=== PATIENT | male | born 1945 | race African-American/Black ===

== ENCOUNTER 2017-01-16 14:24 | Emergency (ER) | payer OTHER ==
[~2017-01-16] VITALS: Ht 180.3 cm; Wt 65.8 kg
[2017-01-16 15:03] VITALS: BP 130/73
--- NOTE | 2017-01-16 15:39 | Emergency Room Report ---
History of Present Illness General Chief Complaint: Dyspnea/Respdistress Source: Patient Present Illness HPI Patient presents with complaints of shortness of breath Initially patient had reported that he was sent here for x-ray imaging However after further discussion patient reports increasingly having shortness of breath patient had recent hospitalization at [facility] and reports he was told that he had pneumonia Patient has a history of cirrhosis and hepatitis C denies any vomiting or diarrhea denies any chest pain however he does have exertional dyspnea Denies any recent travel denies any trauma Allergies: Coded Allergies: No Known Allergies (Unverified , 01/16/17) Patient History Past Medical History: see triage record Pertinent Family History: none Reviewed Nursing Documentation: PMH: Agreed, PSxH: Agreed Nursing Documentation-PMH Past Medical History: No History, Except For Hx Hypertension: Yes Review of Systems All Other Systems: negative except mentioned in HPI Physical Exam Vital Signs Date Time Temp Pulse Resp B/P Pulse Ox O2 Delivery O2 Flow Rate FiO2 01/16/17 14:52 97.3 67 18 130/73 91 Room Air Sp02 EP Interpretation: reviewed, abnormal - 91% which is a low oxygenation General Appearance: no apparent distress Head: normocephalic, atraumatic Eyes: bilateral eye EOMI, bilateral eye PERRL, bilateral eye scleral icterus ENT: normal pharynx, no angioedema Neck: supple, thyroid normal Respiratory: crackles - Diffusely and lower lobes Cardiovascular #1: normal peripheral pulses, regular rate, rhythm, no edema Gastrointestinal: non tender, soft Genitourinary: no CVA tenderness Musculoskeletal: normal inspection Neurologic: alert, oriented x3 Skin: jaundice Lymphatic: no adenopathy Medical Decision Making Diagnostic Impression: Primary Impression: Dyspnea Additional Impression: Emphysema lung ER Course Patient is a fairly complex patient with multiple differential to consideration including but not limited to cardiac cardiopulmonary and vascular emergencies Patient's x-ray shows some chronic pathology cannot rule out acute disease Blood work is at baseline levels patient felt better with breathing treatment At this time I did obtain medical records from previous hospitalization there are some overlying components this patient further stabilized at this time secondary to insurance purposes was requested for transfer for further inpatient care Labs Test 01/16/17 15:20 01/16/17 16:30 White Blood Count 7.9 K/UL (4.8-10.8) Red Blood Count 4.56 M/UL (4.70-6.10) Hemoglobin 14.2 G/DL (14.2-18.0) Hematocrit 44.8 % (42.0-52.0) Mean Corpuscular Volume 98 FL (80-99) Mean Corpuscular Hemoglobin 31.2 PG (27.0-31.0) Mean Corpuscular Hemoglobin Concent 31.7 G/DL (32.0-36.0) Red Cell Distribution Width 14.6 % (11.6-14.8) Platelet Count 191 K/UL (150-450) Mean Platelet Volume 5.3 FL (6.5-10.1) Neutrophils (%) (Auto) 77.2 % (45.0-75.0) Lymphocytes (%) (Auto) 16.8 % (20.0-45.0) Monocytes (%) (Auto) 4.9 % (1.0-10.0) Eosinophils (%) (Auto) 0.7 % (0.0-3.0) Basophils (%) (Auto) 0.5 % (0.0-2.0) Prothrombin Time 13.1 SEC (9.30-11.50) Prothromb Time International Ratio 1.3 (0.9-1.1) Activated Partial Thromboplast Time 26 SEC (23-33) Sodium Level 135 mEQ/L (135-145) Potassium Level 4.9 mEQ/L (3.4-4.9) Chloride Level 97 mEQ/L (98-107) Carbon Dioxide Level 22 mEQ/L (20-30) Anion Gap 16 (5-15) Blood Urea Nitrogen 22 mg/dL (7-23) Creatinine 1.8 mg/dL (0.7-1.2) Estimat Glomerular Filtration Rate mL/min (>60) Glucose Level 76 mg/dL (74-106) Calcium Level 8.1 mg/dL (8.6-10.2) Total Bilirubin 1.1 mg/dL (0.0-1.2) Direct Bilirubin 0.6 mg/dL (0.1-0.3) Aspartate Amino Transf (AST/SGOT) 59 U/L (5-40) Alanine Aminotransferase (ALT/SGPT) 26 U/L (3-41) Alkaline Phosphatase 156 U/L (40-129) Total Creatine Kinase 53 U/L (38-174) Creatine Kinase MB 3.7 ng/mL (< 6.7) Creatine Kinase MB Relative Index 6.9 Troponin I < 0.30 ng/mL (<=0.30) Pro-B-Type Natriuretic Peptide 5169 pg/mL (0-125) Total Protein 6.4 g/dL (6.6-8.7) Albumin 2.3 g/dL (3.5-5.2) Globulin 4.1 g/dL Albumin/Globulin Ratio 0.5 (1.0-2.7) Lipase 21 U/L (< 60) Urine Color Yellow Urine Appearance Clear Urine pH 7 (4.5-8.0) Urine Specific [place] 1.010 (1.005-1.035) Urine Protein 1+ (NEGATIVE) Urine Glucose (UA) Negative (NEGATIVE) Urine Ketones Negative (NEGATIVE) Urine Occult Blood Negative (NEGATIVE) Urine Nitrite Negative (NEGATIVE) Urine Bilirubin Negative (NEGATIVE) Urine Urobilinogen 4 MG/DL (0.0-1.0) Urine Leukocyte Esterase 1+ (NEGATIVE) Urine RBC 0-2 /HPF (0 - 0) Urine WBC 2-4 /HPF (0 - 0) Urine Squamous Epithelial Cells None /LPF (NONE/OCC) Urine Amorphous Sediment Few /LPF (NONE) Urine Bacteria Few /HPF (NONE) Rhythm Strip Diag. Results EP Interpretation: yes Rate: 67 Rhythm: NSR, no PVC's, no ectopy Chest X-Ray Diagnostic Results EP Interpretation: Yes Findings: no effusion, no pneumothorax, other - multiple scarring, atelectasis left middle lobe Number of Views: 1 Last Vital Signs Date Time Temp Pulse Resp B/P Pulse Ox O2 Delivery O2 Flow Rate FiO2 01/16/17 14:52 97.3 67 18 130/73 91 Room Air Status: improved Disposition: XFER [facility] Condition: Serious Referrals: NON PHYSICIAN (PCP) DAVID SUERO D.O. Jan 16, 2017 15:39
[2017-01-16] MEDS ORDERED: Albuterol ud Inhalation HHN ONE (15:45)
[2017-01-16 17:18] VITALS: BP 128/79
--- NOTE | 2017-01-16 17:31 | Diagnostic Imaging Report ---
Indication: SOB Technique: 2 views of the chest Comparison: none Findings: Extensive interstitial pulmonary opacities are seen bilaterally. More confluent triangular opacity is seen in the left midlung, with some stranding centrally. What appears to be extensive bronchiectasis and honeycombing is noted. There is some hyperinflation in the left lung. A more nodular appearing opacity measuring 1.5 cm is seen adjacent to the left heart border. Pleural spaces are clear Impression: Bilateral interstitial disease. Acuity indeterminate, but presence of bronchiectasis and honeycombing suggests this is likely chronic. Left midlung triangular opacity. Acuity likewise indeterminate although suspect this also represents area of chronic scarring 1.5 cm nodular opacity in the left mid to lower lung. Suspect for the above process, but neoplasm not excludable Borderline cardiomegaly Left lung hyperinflation
[2017-01-16 17:43] LABS: APPEARANCE,URINE CLEAR; KETONES,URINE NEGATIVE (NEGATIVE); LEUKOCYTE ESTERASE ,URINE 1+ (NEGATIVE); NITRITE,URINE NEGATIVE (NEGATIVE); PH,URINE 7 (4.5-8.0); PROTEIN,URINE 1+ (NEGATIVE); UROBILINOGEN,URINE 4 MG/DL (0.0-1.0)
[2017-01-16 18:03] LABS: BASOPHILS % (AUTO) 0.5 % (0.0-2.0); EOSINOPHILS % (AUTO) 0.7 % (0.0-3.0); LYMPHOCYTES % (AUTO) 16.8 % (20.0-45.0); MEAN CORPUSCULAR HEMOGLOBIN 31.2 PG (27.0-31.0); MEAN CORPUSCULAR HGB CONC 31.7 G/DL (32.0-36.0); MEAN CORPUSCULAR VOLUME 98 FL (80-99); MEAN PLATELET VOLUME 5.3 FL (6.5-10.1); MONOCYTES % (AUTO) 4.9 % (1.0-10.0); NEUTROPHILS % (AUTO) 77.2 % (45.0-75.0); PLATELET COUNT 191 K/UL (150-450); RED BLOOD COUNT 4.56 M/UL (4.70-6.10); RED CELL DISTRIBUTION WIDTH 14.6 % (11.6-14.8); WHITE BLOOD COUNT 7.9 K/UL (4.8-10.8)
[2017-01-16 18:06] LABS: INR 1.3 (0.9-1.1); PROTHROMBIN TIME 13.1 SEC (9.30-11.50); TROPONIN I < 0.30 ng/mL (<=0.30)
[2017-01-16 18:09] LABS: ALANINE AMINOTRANSFERASE 26 U/L (3-41); ALBUMIN/GLOBULIN RATIO 0.5 (1.0-2.7); ANION GAP 16 (5-15); ASPARTATE AMINO TRANSFERASE 59 U/L (5-40); CALCIUM 8.1 mg/dL (8.6-10.2); CARBON DIOXIDE 22 mEQ/L (20-30); CHLORIDE 97 mEQ/L (98-107); CREATININE 1.8 mg/dL (0.7-1.2); HEMOLYSIS 131; LIPASE 21 U/L (< 60); SODIUM 135 mEQ/L (135-145); TOTAL PROTEIN 6.4 g/dL (6.6-8.7)
[2017-01-16 18:12] LABS: AMORPHOUS SEDIMENT,UR FEW /LPF; BACTERIA,URINE FEW /HPF; RBC,URINE 0-2 /HPF (0 - 0)
[2017-01-16 18:24] LABS: BILIRUBIN,DIRECT 0.6 mg/dL (0.1-0.3)
[2017-01-16 18:25] LABS: CKMB 3.7 ng/mL (< 6.7); POTASSIUM 4.9 mEQ/L (3.4-4.9)
[2017-01-16 18:46] VITALS: BP 152/87
[2017-01-16 20:41] VITALS: BP 156/75
[2017-01-16 21:37] VITALS: BP 156/75
--- NOTE | 2017-01-18 23:14 | Cardiology Report ---
APPROVED REPORT EKG Measurement Heart [id number] Normal sinus rhythm Possible Left atrial enlargement Borderline ECG
== END 2017-01-16 21:37 | disposition short-term general hospital (02) ==
LOC: EMR 15:08
DX: J43.9 Emphysema, unspecified (principal); I10 Essential (primary) hypertension
CPT/HCPCS: 36415; 71010; 71020; 80053; 81003; 82248; 82550; 82553; 83690; 83880; 84484; 85025; 85610; 85730; 93005; 94640; 94664; 99285

== ENCOUNTER 2019-05-02 13:32 | Inpatient (IN) | payer MEDICARE, OTHER ==
[~2019-05-02] VITALS: Ht 180.3 cm; Wt 52.2 kg
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
[2019-05-02 13:41] VITALS: BP 232/122
[2019-05-02] MEDS ORDERED: cloNIDine 0.2mg Tab ORAL ONE (13:45)
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
[2019-05-02] MEDS ORDERED: Labetalol 5mg/ml 20ml vial IV ONE (14:00)
[2019-05-02 14:24] LABS: BASOPHILS % (AUTO) 0.7 % (0.0-2.0); EOSINOPHILS % (AUTO) 0.1 % (0.0-3.0); HEMOGLOBIN 15.4 G/DL (14.2-18.0); LYMPHOCYTES % (AUTO) 13.6 % (20.0-45.0); MEAN CORPUSCULAR VOLUME 100 FL (80-99); MONOCYTES % (AUTO) 9.2 % (1.0-10.0); NEUTROPHILS % (AUTO) 76.4 % (45.0-75.0); PLATELET COUNT 284 K/UL (150-450); RED BLOOD COUNT 4.71 M/UL (4.70-6.10); RED CELL DISTRIBUTION WIDTH 11.1 % (11.6-14.8); WHITE BLOOD COUNT 10.1 K/UL (4.8-10.8)
[2019-05-02] MEDS ORDERED: Loperamide 2mg cap ORAL ONE (14:30)
--- NOTE | 2019-05-02 14:43 | Diagnostic Imaging Report ---
Indication: Headache Technique: Contiguous 5 mm thick transaxial imaging of the head obtained in a Siemens Sensation [address] scanner. Soft tissue and bone windows generated. Automatic Exposure Control was utilized. Total Dose length Product (DLP): 1340.[address] Dose Index Volume (CTDIvol): 70.38 mGy Comparison: none Findings: There is an area of low attenuation measuring about 6 to 7 mm in the right thalamus. There is also an area of low attenuation in the medial left thalamus measuring about 4 mm. These are consistent with lacunar infarcts the acuity of which is not certain but probably old. Please correlate clinically. There is moderate prominence of the ventricles, basal cisterns, and cerebral sulci consistent with atrophy. Moderate, nonspecific, white matter hypoattenuation is noted throughout the brain consistent with chronic small vessel disease. There is no midline shift, edema, acute hemorrhage, mass effect, or abnormal extra-axial fluid collections. Bones are unremarkable. Impression: Age-indeterminate small lacunar infarcts involving the thalami bilaterally. Correlate clinically. These are probably old. Moderate atrophy of the brain. Evidence of chronic small vessel disease involving white matter tracts. The CT scanner at [facility] is accredited by the [employer] and the scans are performed using dose optimization techniques as appropriate to a performed exam including Automatic Exposure control.
[2019-05-02 14:45] LABS: ANION GAP 16 mmol/L (5-15); BLOOD UREA NITROGEN 73 mg/dL (7-18); CALCIUM 9.8 MG/DL (8.5-10.1); CARBON DIOXIDE 21 MMOL/L (21-32); CHLORIDE 100 MMOL/L (98-107); CREATININE 3.6 MG/DL (0.55-1.30); POTASSIUM 4.2 MMOL/L (3.5-5.1); SODIUM 137 MMOL/L (136-145)
[2019-05-02 14:54] LABS: INR 1.1 (0.9-1.1)
[2019-05-02 15:00] LABS: ALANINE AMINOTRANSFERASE 61 U/L (12-78); ALBUMIN/GLOBULIN RATIO 0.8 (1.0-2.7); ALKALINE PHOSPHATASE 200 U/L (46-116); ASPARTATE AMINO TRANSFERASE 74 U/L (15-37); BILIRUBIN,TOTAL 1.4 MG/DL (0.2-1.0); CKMB 8.6 NG/ML (0.0-3.6); CREATINE KINASE 291 U/L (26-308)
[2019-05-02 15:01] LABS: BILIRUBIN,DIRECT 0.6 MG/DL (0.0-0.3)
[2019-05-02 15:08] VITALS: BP 177/108
--- NOTE | 2019-05-02 15:09 | NUR ---
ED Nurse Note: notified Dr. Martinez regarding BP 177/108
--- NOTE | 2019-05-02 15:15 | NUR ---
ED Nurse Note: urinal provided for UA, patient stated he will try later
--- NOTE | 2019-05-02 15:19 | NUR ---
ED Nurse Note: sandwich /juice provided for patient as requested Dr. Martinez is ok with patient eating
--- NOTE | 2019-05-02 15:44 | Diagnostic Imaging Report ---
Indication: Cough Comparison: 01/16/2017 A single view chest radiograph was obtained. Findings: The lungs are clear. Heart size is normal. The aorta is mildly ectatic and calcified. Bones are osteopenic. Scarring in the left upper lobe noted. IMPRESSION: No acute disease. Note: The comparison film from 01/16/2017 shows evidence of bronchiectasis and interstitial disease likely pulmonary fibrosis. Given the marked difference in appearance compared to the current study, the current exam was repeated and the patient's identification was confirmed. The exam from 01/16/2017 may not be this patient since the findings on the 01/16/17 examination suggest fibrosis which would never be expected to resolve. Having said that, it is conceivable that the patient had acute interstitial infiltrates of the transient nature that have resolved since 2017. Please correlate with the clinical history and timing of the emergency room visits etc.
[2019-05-02 15:51] VITALS: BP 130/74
[2019-05-02 16:33] LABS: APPEARANCE,URINE CLEAR; BILIRUBIN, URINE NEGATIVE (NEGATIVE); COLOR,URINE PALE YELLOW; GLUCOSE, URINE (UA) NEGATIVE (NEGATIVE); KETONES,URINE NEGATIVE (NEGATIVE); LEUKOCYTE ESTERASE ,URINE NEGATIVE (NEGATIVE); NITRITE,URINE NEGATIVE (NEGATIVE); PH,URINE 6 (4.5-8.0); PROTEIN,URINE 3+ (NEGATIVE); UROBILINOGEN,URINE NORMAL MG/DL (0.0-1.0)
--- NOTE | 2019-05-02 16:43 | NUR ---
ED Nurse Note: called [facility] and spoke with MACY WELCH, the receiving nurse Linda is busy at the moment and the room is not ready yet will call back later
--- NOTE | 2019-05-02 17:20 | NUR ---
ED Nurse Note: patient is being transferred to [facility], report given to Linda WELCH, endorsed all plan of care to Linda WELCH.
--- NOTE | 2019-05-02 17:30 | NUR ---
NURSE NOTES: Received report from REBEKAH Phillips. Patient admitted to SDU for hypertensive emergency. Patient alert and oriented x 4, able to make needs known. On room air, respirations even and unlabored. Right wrist 22g saline lock patent and asymptomatic. Patient denies any pain at this time. Bed locked in lowest position with side rails up x 3. All needs attended to. Call light within reach. Will continue to monitor.
[2019-05-02 17:40] VITALS: BP 150/99
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
--- NOTE | 2019-05-02 19:15 | NUR ---
HAND-OFF: Report given to Juan Tran RN.
--- NOTE | 2019-05-02 19:16 | NUR ---
NURSE NOTES: Received report from Elba Mckeon RN. Patient seen in bed in semi zavala position.No SOB. alert, verbally responsive, able to make needs known. denies any pain. noted IV site to right wrist area and is intact. Currently running 1/2NS 75cc/hr. Bed is in lowest position. Call light is within easy reach while in bed. will continue to monitor.
[2019-05-02] MEDS: Labetalol 200mg tab ORAL SCH (20:55)
[2019-05-02 21:00] VITALS: BP 144/88
--- NOTE | 2019-05-02 22:30 | NUR ---
NURSE NOTES: Received call from Lab, Spoke to Aletha. Patient's toxicology result shows that he is positive for meth, cocaine, and opioids. dr Steiner made aware with No new order.
[2019-05-03] VITALS: BP 110/64
[2019-05-03 04:00] VITALS: BP 126/79
[2019-05-03 05:04] LABS: ANION GAP 16 mmol/L (5-15); BLOOD UREA NITROGEN 74 mg/dL (7-18); CALCIUM 9.8 MG/DL (8.5-10.1); CARBON DIOXIDE 21 MMOL/L (21-32); CHLORIDE 98 MMOL/L (98-107); CREATININE 3.5 MG/DL (0.55-1.30); POTASSIUM 4.3 MMOL/L (3.5-5.1); SODIUM 135 MMOL/L (136-145)
--- NOTE | 2019-05-03 06:59 | NUR ---
HAND-OFF: Report given to REBEKAH Girard.
--- NOTE | 2019-05-03 07:15 | NUR ---
NURSE NOTES: Received report from Juan Tran RN. Patient asleep in bed, opens eyes spontaneously, able to make needs known. On room air, respirations even and unlabored. Right wrist 22g saline lock patent and asymptomatic. Left forearm 24g IV site infusing 1/2NS @ 75 cc/hr, no s/s of infiltration noted. Patient denies any pain at this time. Bed locked in lowest position with side rails up x 3. All needs attended to. Call light within reach. Will continue to monitor.
--- NOTE | 2019-05-03 07:37 | Nephrology Progress Note ---
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- Cr down to 3.5 - BL Cr unclear, last Cr 1.8 - BROOKE from volume depletion, CKD from HTN/Cocaine use 2) HTN Urgency- resolved 3) Polysubstance abuse- + Opiods/Amphetamine/Cocaine 4) Dehydration- IVFs Subjective Date patient seen: May 03, 2019 Time patient seen: 07:34 ROS Limited/Unobtainable: No Allergies: Coded Allergies: No Known Allergies (Unverified , 01/16/17) Subjective Patient feeling better Objective Last 24 Hour Vital Signs Date Time Temp Pulse Resp B/P (MAP) Pulse Ox O2 Delivery O2 Flow Rate FiO2 05/03/19 04:00 Room Air 05/03/19 04:00 98.0 61 20 126/79 (95) 99 05/03/19 03:26 63 05/03/19 00:00 Room Air 05/03/19 00:00 97.6 69 20 110/64 (79) 98 05/02/19 23:33 62 05/02/19 21:00 98.0 89 19 144/88 (106) 99 05/02/19 20:55 88 144/84 05/02/19 20:00 Room Air 05/02/19 19:03 96 05/02/19 18:40 91 05/02/19 18:06 Room Air 05/02/19 17:59 89 150/99 05/02/19 17:40 97.7 20 150/99 (116) 99 05/02/19 17:19 98.4 98 12 130/74 100 Room Air 05/02/19 15:51 98.4 98 12 130/74 100 Room Air 05/02/19 15:08 98.4 99 12 177/108 99 Room Air 05/02/19 14:36 115 232/122 05/02/19 14:06 115 232/122 05/02/19 14:06 232/122 05/02/19 13:41 98.4 115 14 232/122 100 Room Air 05/02/19 13:41 115 14 Room Air 05/02/19 13:32 98.4 105 18 230/130 (163) 96 Room Air Intake and Output 05/02/19 05/03/19 19:00 07:00 Intake Total 435 ml 1020 ml Output Total 500 ml Balance 435 ml 520 ml Intake Oral 360 ml 120 ml IV Total 75 ml 900 ml Output Urine Total 500 ml Laboratory Tests 05/02/19 14:05: White Blood Count 10.1, Red Blood Count 4.71, Hemoglobin 15.4, Hematocrit 47.0, Mean Corpuscular Volume 100H, Mean Corpuscular Hemoglobin 32.7H, Mean Corpuscular Hemoglobin Concent 32.8, Red Cell Distribution Width 11.1L, Platelet Count 284, Mean Platelet Volume 6.8, Neutrophils (%) (Auto) 76.4H, Lymphocytes (%) (Auto) 13.6L, Monocytes (%) (Auto) 9.2, Eosinophils (%) (Auto) 0.1, Basophils (%) (Auto) 0.7, Prothrombin Time 11.5, Prothromb Time International Ratio 1.1, Activated Partial Thromboplast Time 27, Sodium Level 137, Potassium Level 4.2, Chloride Level 100, Carbon Dioxide Level 21, Anion Gap 16H, Blood Urea Nitrogen 73H, Creatinine 3.6H, Estimat Glomerular Filtration Rate , Glucose Level 128H, Lactic Acid Level 1.70, Calcium Level 9.8 , Total Bilirubin 1.4H, Direct Bilirubin 0.6H, Aspartate Amino Transf (AST/SGOT ) 74H, Alanine Aminotransferase (ALT/SGPT) 61, Alkaline Phosphatase 200H, Total Creatine Kinase 291, Creatine Kinase MB 8.6H, Creatine Kinase MB Relative Index 2.9, Troponin I 0.087H, Total Protein 8.8H, Albumin 4.0, Globulin 4.8, Albumin/ Globulin Ratio 0.8L, Lipase 75 05/02/19 16:14: Urine Color Pale yellow, Urine Appearance Clear, Urine pH 6, Urine Specific [place] 1.015, Urine Protein 3+H, Urine Glucose (UA) Negative, Urine Ketones Negative, Urine Blood 3+H, Urine Nitrite Negative, Urine Bilirubin Negative, Urine Urobilinogen Normal, Urine Leukocyte Esterase Negative, Urine RBC 0, Urine WBC 0, Urine Squamous Epithelial Cells Occasional, Urine Bacteria None 05/02/19 21:00: Urine Opiates Screen PositiveH, Urine Barbiturates Screen Negative, Phencyclidine (PCP) Screen Negative, Urine Amphetamines Screen PositiveH, Urine Benzodiazepines Screen Negative, Urine Cocaine Screen PositiveH, Urine Marijuana (THC) Screen Negative 05/03/19 03:45: Sodium Level 135L, Potassium Level 4.3, Chloride Level 98, Carbon Dioxide Level 21, Anion Gap 16H, Blood Urea Nitrogen 74H, Creatinine 3.5H, Estimat Glomerular Filtration Rate , Glucose Level 117H, Calcium Level 9.8 Height (Feet): 5 Height (Inches): 11.00 Weight (Pounds): 115 General Appearance: no apparent distress, alert EENT: normal ENT inspection Neck: normal alignment, supple Cardiovascular: normal rate, regular rhythm Respiratory/Chest: lungs clear, normal breath sounds Abdomen: non tender, soft Edema: no edema noted Arm (L), no edema noted Arm (R), no edema noted Leg (L), no edema noted Leg (R), no edema noted Pedal (L), no edema noted Pedal (R), no edema noted Generalized Candelario Steiner MD May 03, 2019 07:37
[2019-05-03 08:00] VITALS: BP 147/84
[2019-05-03] MEDS: Labetalol 200mg tab ORAL SCH ×2 (08:33→21:13)
[2019-05-03] MEDS: Aspirin Baby 81mg ORAL SCH (08:33)
--- NOTE | 2019-05-03 10:24 | Diagnostic Imaging Report ---
Indication: Acute renal failure, abnormal renal function tests Technique: Grayscale and duplex images of the kidneys, retroperitoneum, and bladder were obtained. Comparison: none Findings: Exam is limited due to patient body habitus. Right kidney measures 10 cm in length. Left kidney measures 9.6 cm in length. Both kidneys demonstrate increased echogenicity. No hydronephrosis. Since cysts are seen in the left kidney. Possible punctate calyceal calcifications are seen in the left kidney.. Normal inferior vena cava. Bladder is normal. Calculated volume 240 mL. Patient had no urge to void at the time of exam Impression: Echogenic kidneys bilaterally, consistent with medical renal disease Negative for hydronephrosis. Possible nonobstructive left renal calculi Incidental finding left renal cysts
--- NOTE | 2019-05-03 10:54 | NUR ---
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 BROOKE . ELEVATED TROPONIN VS: BP 232/122, P 115, T 98.4, RR 18, SpO2 96 BUN 73, CR 3.6, TROPONIN I 0.087 IS:ZOFRAN 4mg IVP CLONIDINE 0.2mg NS x1L IV LABETALOL 10mg IV NORVASC 10mg IMODIUM 4mg ASPIRIN 325mg ADMITTED TO TO SDU DCP: RETURN HOME WHEN APPROPRIATE
--- NOTE | 2019-05-03 11:47 | NUR ---
*-* INSURANCE *-* ALL CLINICALS AND REVIEWS HAVE BEEN FAXED TO: LEYDA ONEALM:ZAK P: [phone] F: [phone] (FAX CLINICALS)
[2019-05-03 12:00] VITALS: BP 138/74
--- NOTE | 2019-05-03 15:00 | NUR ---
NURSE NOTES: Assumed pt care,report received from Linda Mtz RN.Pt resting in bed awake,alert ,in no distress denies any discomfort or dizziness,verbalized feeling better.
[2019-05-03 16:00] VITALS: BP 146/78
--- NOTE | 2019-05-03 16:15 | History and Physical Report ---
DATE OF ADMISSION: 05/02/2019 DATE OF SERVICE: 05/03/2019 HISTORY OF PRESENT ILLNESS: This is a 73-year-old male who reports that he ran out of his methadone recently as he travelled out of town. He also reports he was locked out of his own house and could not take his blood pressure medications. He felt nauseous and was also hypertensive. He came to the emergency room with renal failure as well as hypertension. He was admitted to the hospital for IV hydration for acute renal failure as well as blood pressure control. Overnight, his pressures have improved. This morning, his pressure is noted to be 130/60, heart rate 65. He states he is feeling better. PAST HISTORY: Hypertension, chronic methadone usage, renal insufficiency, CKD, opiate dependency. FAMILY HISTORY: Hypertension. SURGERIES: None. REVIEW OF SYSTEMS: Denies any headaches, hematemesis, melena, or hematochezia. PHYSICAL EXAMINATION: GENERAL: Reveals a 73-year-old male. HEENT: Unremarkable. LUNGS: Clear breath sounds bilaterally. ABDOMEN: Soft. NEUROLOGIC: Nonfocal. VITAL SIGNS: Blood pressure is 130/60, heart rate 70, respirations 18, he is afebrile. LABORATORY DATA: Lab testing, CBC is normal. Creatinine of 3.5, yesterday was 3.6, glucose 117. Troponin 0.08. Toxicology is positive for cocaine, amphetamines, and opiates. Urinalysis shows 3+ hematuria. Lab testing shows renal ultrasound consistent with nonobstructive left renal calculus and echogenic bilateral kidneys. X-ray chest is negative. However, there is evidence of possible bronchiectasis versus early interstitial pulmonary fibrosis. This is unchanged from previous. Head CT was negative. IMPRESSION: 1. Hypertensive urgency. 2. Substance abuse. 3. Chronic methadone use. 4. CKD. DISCUSSION: Admit to the hospital. The patient reports he is currently homeless. We will obtain social work consult for this reason. He clearly has not been taking medications. Therefore, it was important to document noncompliance in his record. Blood pressure control. IV fluids. We will follow. Ilia Smith M.D. DR: BRENDA JOB#: [id number] CC:
--- NOTE | 2019-05-03 19:30 | NUR ---
HAND-OFF: Report given to Cara AKERS.
--- NOTE | 2019-05-03 19:31 | NUR ---
NURSE NOTES: received patient from REBEKAH Boyer. patient is resting in bed, verbally responsive to commands. denies pain at this time. patient is on room air, no s/sx of respiratory distress noted at this time. IV sites are patent and intact, running fluids at prescribed rate. bed in lowest position and locked, siderails up X3, call light within reach. will continue to monitor.
[2019-05-03 20:00] VITALS: BP 146/80
[2019-05-04] VITALS: BP 143/72
[2019-05-04] MEDS ORDERED: Aspirin EC 81mg tab ORAL SCH
[2019-05-04] MEDS ORDERED: Labetalol 200mg tab ORAL SCH
[2019-05-04 04:00] VITALS: BP 147/80
[2019-05-04 06:58] LABS: ANION GAP 13 mmol/L (5-15); BLOOD UREA NITROGEN 58 mg/dL (7-18); CALCIUM 8.7 MG/DL (8.5-10.1); CARBON DIOXIDE 18 MMOL/L (21-32); CHLORIDE 106 MMOL/L (98-107); POTASSIUM 3.3 MMOL/L (3.5-5.1); SODIUM 137 MMOL/L (136-145)
--- NOTE | 2019-05-04 07:30 | NUR ---
NURSE NOTES: Received report from REBEKAH Marroquin. Patient is resting in bed, in stable condition. No s/sx of SOB, breathing is even and unlabored. Denies any presence pain or discomfort at this time. Bed is in lowest position, brakes engaged. Call light is kept within easy reach. Will continue to monitor patient.
--- NOTE | 2019-05-04 07:43 | Nephrology Progress Note ---
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- Cr improved to 3. - BL Cr unclear, last Cr 1.8. - BROOKE from volume depletion, CKD from HTN/Cocaine use - continue IVFs until discharged. Will need follow up 2) HTN Urgency- resolved 3) Polysubstance abuse- + Opiods/Amphetamine/Cocaine 4) Dehydration- IVFs until discharged Subjective Date patient seen: May 04, 2019 Time patient seen: 07:41 ROS Limited/Unobtainable: No Allergies: Coded Allergies: No Known Allergies (Unverified , 01/16/17) Subjective Patient feeling better. Back to baseline Objective Last 24 Hour Vital Signs Date Time Temp Pulse Resp B/P (MAP) Pulse Ox O2 Delivery O2 Flow Rate FiO2 05/04/19 04:00 97.7 78 20 147/80 (102) 98 05/04/19 04:00 81 05/04/19 04:00 Room Air 05/04/19 00:00 70 05/04/19 00:00 Room Air 05/04/19 00:00 97.7 67 24 143/72 (95) 97 05/03/19 21:13 85 146/80 05/03/19 20:00 Room Air 05/03/19 20:00 98.1 85 20 146/80 (102) 95 85 05/03/19 20:00 80 05/03/19 17:32 72 146/78 05/03/19 16:00 Room Air 05/03/19 16:00 97.3 63 18 146/78 (100) 97 63 05/03/19 16:00 72 05/03/19 12:00 Room Air 05/03/19 12:00 97.9 63 20 138/74 (95) 98 05/03/19 11:43 63 05/03/19 08:34 63 129/65 05/03/19 08:33 63 129/65 05/03/19 08:00 98.2 77 20 147/84 (105) 99 05/03/19 08:00 Room Air 05/03/19 07:45 74 Intake and Output 05/03/19 05/04/19 18:59 06:59 Intake Total 1806.25 ml 600 ml Output Total 500 ml 650 ml Balance 1306.25 ml -50 ml Intake Oral 1050 ml IV Total 756.25 ml 600 ml Output Urine Total 500 ml 650 ml Laboratory Tests 05/04/19 05:39: Sodium Level 137, Potassium Level 3.3L, Chloride Level 106, Carbon Dioxide Level 18L, Anion Gap 13, Blood Urea Nitrogen 58H, Creatinine 3.0H, Estimat Glomerular Filtration Rate , Glucose Level 100, Calcium Level 8.7 Height (Feet): 5 Height (Inches): 11.00 Weight (Pounds): 115 General Appearance: no apparent distress EENT: normal ENT inspection Neck: normal alignment, supple Cardiovascular: normal rate, regular rhythm Respiratory/Chest: lungs clear, normal breath sounds Abdomen: non tender, soft Edema: no edema noted Arm (L), no edema noted Arm (R), no edema noted Leg (L), no edema noted Leg (R), no edema noted Pedal (L), no edema noted Pedal (R), no edema noted Generalized Candelario Steiner MD May 04, 2019 07:43
--- NOTE | 2019-05-04 07:47 | NUR ---
HAND-OFF: Report given to REBEKAH Linton. patient is in stable condition.
[2019-05-04 08:00] VITALS: BP 155/83
[2019-05-04 08:49] VITALS: BP 155/83
[2019-05-04] MEDS: Labetalol 200mg tab ORAL SCH (08:49)
[2019-05-04] MEDS: Aspirin Baby 81mg ORAL SCH (08:49)
--- NOTE | 2019-05-04 10:07 | NUR ---
Spoke with Estuardo at [facility] [phone] will accept patient today before 1 pm. Patient made aware and agreed. Dr Hernández aware and ordered discharged patient.
--- NOTE | 2019-05-04 11:45 | NUR ---
NURSE NOTES: Patient discharged to homeless half-way self-care per Dr. Steiner. Patient given all discharge instructions and verbalized understanding. Patient given supply of blood pressure medications. IV access removed, no active bleeding noted. Heart monitor removed and returned to monitoring engineer. ID band removed and placed in shredder. Patient left in taxi with all belongings, in stable condition.
[2019-05-04] MEDS ORDERED: Tubing IV Secondary IV ONE (12:05)
[2019-05-04] MEDS ORDERED: 1/2 NS 1000ml IV ONE (12:05)
[2019-05-04] MEDS ORDERED: NS 275ml ONE (12:05)
--- NOTE | 2019-05-06 08:45 | Discharge Summary ---
Discharge Summary Discharge Summary _ DATE OF ADMISSION: 05/02/2019 DATE OF DISCHARGE: 05/04/2019 DISCHARGED BY: Dr. Smith REASON FOR ADMISSION: 73 years old male with past medical history of hypertension, chronic kidney disease, opioid dependency, methadone usage, ran out of his methadone . He also did not take his antihypertensive medications. Patient felt nauseous and he came to the emergency department. Upon evaluation patient was found to be severely hypertensive with blood pressure 230/130 and tachycardic with heart rate 105. Laboratory work-up revealed no leukocytosis, stable hemoglobin and hematocrit. Lactic acid 1.7. Stable electrolytes. BUN 73 , creatinine 3.6. AST 74, ALT 61. Lipase 75. CK 291. Troponin 0.087. EKG revealed sinus tachycardia , no acute ST changes. Chest x-ray revealed no acute cardiopulmonary pathology. CT of the head demonstrated no acute intracranial pathology. Age undetermined small lacunar infarcts , involving the thalamus bilaterally noted. Probably old. Moderate atrophy of the brain. Evidence of chronic small vessel disease, involving white matter tracts. Urine toxicology screen was positive for opiates, amphetamine, and cocaine. Patient received labetalol IV and then admitted to stepdown unit for further management. CONSULTANTS: roll clamp operator Dr.De Gamez [facility] COURSE: Patient admitted to direct observational unit. Patient started on the IV fluids. Fleet Maintenance Foreman followed. Blood pressure was managed with calcium channel angel and beta-angel. Blood pressures improved , and prior to discharge 155/83. Minimally elevated troponin was likely due to troponin leak secondary to renal failure. No complaints of chest pain, no SOB. Pulse oximetry stable on room air, ECG with sinus rhythm, no acute ischemic changes. Renal parameters and electrolytes were closely monitored, nephrotoxins were avoided. Renal ultrasound revealed bilateral echogenic kidneys, consistent with medical renal disease. No hydronephrosis. Possible nonobstructive left renal calculi. Prior to discharge BUN from 73 down to 58 and creatinine from 3.6 down to 3.0. Per roll clamp operator, patient had acute kidney injury on chronic kidney disease stage IV. Acute kidney injury resolved from volume depletion. Chronic kidney disease was secondary to hypertension and cocaine use. Patient will need to follow-up with roll clamp operator as outpatient. Patient was counseled on abstinence from illicit street drugs. Patient was counseled on compliance with medication regimen. Patient admitted to being homeless. [facility] was contacted and was accepting patient. Patient made aware and agreed to plan. Patient subsequently was discharged to [facility]. FINAL DIAGNOSES: Hypertensive urgency Acute kidney injury on chronic kidney disease st 4 Dehydration Polysubstance abuse/amphetamine, cocaine Chronic methadone use DISCHARGE MEDICATIONS: Scripts provided. DISCHARGE INSTRUCTIONS: Patient was discharged to [facility]. Follow up with primary care provider . [facility] in one week. I have been assigned to dictate discharge summary for this account. I was not involved in the patient's management. Tameka Payne NP May 06, 2019 08:45
--- NOTE | 2019-05-06 16:07 | NUR ---
*-* INSURANCE *-* UPDATED CLINICALS AND REVIEWS & DISCHARGE INSTRUCTIONS HAVE BEEN FAXED TO: LEYDA ARCEO:ZAK P: [phone] F: [phone] (FAX CLINICALS)
--- NOTE | 2019-05-06 20:47 | Cardiology Report ---
APPROVED REPORT EKG Measurement Heart [id number] Sinus tachycardia Moderate voltage criteria for LVH, may be normal variant Borderline ECG
== END 2019-05-04 12:06 | disposition home or self-care (01) | DRG 305 ==
LOC: EDBD 13:32 → EMR 14:20 → 2W 16:05 → EDBEDREQ 16:23
DX: I16.0 Hypertensive urgency (principal); N17.9 Acute kidney failure, unspecified; N18.4 Chronic kidney disease, stage 4 (severe); F11.20 Opioid dependence, uncomplicated; I12.9 Hypertensive chronic kidney disease with stage 1 through stage 4 chronic kidney disease, or unspecified chronic kidney disease; E86.0 Dehydration; F15.10 Other stimulant abuse, uncomplicated; F14.10 Cocaine abuse, uncomplicated; Z59.0 Homelessness; F19.10 Other psychoactive substance abuse, uncomplicated
CPT/HCPCS: 36415; 70450; 71045; 76770; 80048; 80053; 80307; 81003; 82248; 82550; 82553; 83605; 83690; 84484; 85025; 85610; 85730; 87040; 93005; 96361; 96374; 96375; 99291; J2405; J8499